=== PATIENT | female | born 1930 | race Caucasian/White ===

== ENCOUNTER 2016-10-11 17:11 | Inpatient (IN) ==
--- NOTE | 2016-10-11 18:12 | Diag Imaging Result Doc PS360 ---
EXAM: HEAD W/O CONTRAST HISTORY: possible tia TECHNIQUE: CT brain without. Dose reduction protocol. COMPARISON: None. FINDINGS: No parenchymal hemorrhage. No epidural or subdural hematoma. No subarachnoid hemorrhage. No mass identified on this noncontrasted exam. No hydrocephalus. There is atrophy. No sinus opacification. IMPRESSION: No hemorrhage. Mild atrophy. Electronically signed by Greg Currie 10/11/2016 6:10 PM
[2016-10-11] MEDS ORDERED: ASPIRIN PO ONE (18:32)
[2016-10-11 18:51] LABS: MANUAL DIFF NEEDED? NO
[2016-10-11 18:52] LABS: BASO% 1.3 % (0.0-0.8); EOS# 0.35 X1000 (0.0-0.7); EOS% 3.5 % (0.0-10.0); HEMATOCRIT 42.6 % (37.0-47.0); IMM GRAN# 0.03 X1000 (0.0-0.04); IMM GRAN% 0.3 % (0.0-0.5); LYMPH# 2.05 X1000 (1.2-3.4); LYMPH% 20.7 % (20.5-51.1); MCH 31.7 PG (27-31); MCHC 32.9 g/dL (33-37); MCV 96.6 FL (81-99); MONO# 1.06 X1000 (0.11-0.59); MONO% 10.7 % (1.7-9.3); MPV 10.2 FL (7.4-10.4); NEUT% 63.5 % (42.2-75.2); PLT 301 X1000 (130-400); RBC 4.41 XMIL (4.2-5.4)
[2016-10-11 19:03] LABS: INR 0.94; PROTIME 9.8 Seconds (9.2-11.7); PTT 24.5 Seconds (22.0-36.0)
[2016-10-11 19:04] LABS: CALCIUM 9.3 mg/dL (8.8-10.2); TOTAL BILIRUBIN 0.15 mg/dL (0.20-1.00); TOTAL PROTEIN 7.4 g/dL (6.3-8.3)
--- NOTE | 2016-10-11 19:16 | Diag Imaging Result Doc PS360 ---
EXAM: CHEST-PORTABLE HISTORY: stroke like symptoms TECHNIQUE: Portable AP COMPARISON: 05/11/2016 FINDINGS: The lungs are well expanded. The heart is not enlarged. The vessels are not distended. No pneumonia. No pleural effusions identified. IMPRESSION: Negative chest Electronically signed by Greg Currie 10/11/2016 7:13 PM
[2016-10-11 19:18] LABS: URINE CULTURE NEEDED? NO; URINE MICRO REVIEW NEEDED? NO; URINE SOURCE CLEAN CATCH
[2016-10-11 19:25] LABS: BILIRUBIN URINE NEGATIVE (NEGATIVE); BLOOD URINE NEGATIVE (NEGATIVE); COLOR STRAW; GLUCOSE URINE NEGATIVE (NEGATIVE); LEUKOCYTES URINE NEGATIVE (NEGATIVE); NITRITE URINE NEGATIVE (NEGATIVE); PH URINE 7.5; PROTEIN URINE NEGATIVE (NEGATIVE); SP GRAVITY URINE 1.001; TURBIDITY URINE CLEAR (CLEAR); UROBILINOGEN URINE NORMAL (NORMAL)
[2016-10-11 19:26] LABS: UR EPITHELIAL CELLS <10 /HPF (<10); URINE BACTERIA NEGATIVE /HPF; URINE RBC <10 /HPF (<10); URINE WBC <10 /HPF (<10)
--- NOTE | 2016-10-11 19:30 | PROVIDER DOCUMENTATION ---
This chart was entered by Regla Kessler Scribe, acting as scribe for Jamey Aguilar MD. HPI-Neurological Disorder - General Chief Complaint: Stroke-Like Symptoms Stated Complaint: POSS TIA Time Seen by Provider: 10/11/16 18:34 Source: patient Allergies/Adverse Reactions: Patient Allergies Allergy/AdvReac Type Severity Reaction Status Date / Time Penicillins Allergy Severe ANAPHYLAXIS Verified 10/11/16 17:43 niacin Allergy FLUSHING Verified 10/11/16 17:43 [From Niaspan Extended-Release] raloxifene HCl * Allergy Unknown Verified 10/11/16 17:43 [From Evista] ezetimibe [From Zetia] AdvReac myalgia Verified 10/11/16 17:43 fluvastatin sodium * AdvReac muscle pain Verified 10/11/16 17:43 [From Lescol] rosuvastatin calcium * AdvReac muscle pain Verified 10/11/16 17:43 [From Crestor] simvastatin [From Zocor] AdvReac NAUSEA Verified 10/11/16 17:43 Home Medications: Home Medication List Medication Instructions Recorded Confirmed Last Taken Type Lorazepam [Ativan] 0.5 mg PO BID 03/21/16 09/19/16 10/11/16 10:00 History Ondansetron HCl [Zofran] 4 mg PO PRN PRN 03/21/16 10/11/16 10/10/16 History Polyethylene Glycol 3350 [Miralax] 17 gm PO QPM 04/04/16 10/11/16 10/10/16 21: 00 History Cyanocobalamin (Vitamin B-12) 1,000 mcg IJ DIRECTED 10/11/16 10/11/16 History [Cyanocobalamin Injection] Hydrochlorothiazide 12.5 mg PO DAILY 10/11/16 10/11/16 10/10/16 21:00 History Omeprazole [Prilosec] 40 mg PO DAILY 10/11/16 10/11/16 10/11/16 10:00 History Prednisolone 1% Oph Susp [Pred 1 ml OP DIRECTED 10/11/16 10/11/16 10/11/16 History Forte 1% Oph Suspension] - History of Present Illness-Neuro Nature of Presenting Problem: 85 Y/O F presents to ED with Stroke like symptoms. Pt states that she went to visit daughter today and she was fine and began having slurred speech, was driving home and got lost began having confusion. Lasted about 30 mins and went away. pt states mild left side headache, pain in neck on left side. Pt states she has loss about 40 pounds due to gastrophresis. Pt was able to come off of HTN meds due to weight loss. Headache Location: reports: frontal (left side) Severity: reports: mild Onset/Duration: reports: this evening Timing: reports: gone now Character of Altered Mental Status: reports: confused. denies: seizure activity , decreased responsiveness Any recent trauma/injury?: reports: none Character of Deficits: reports: impaired speech New weakness or altered sensation location:: reports: none Cognitive Baseline: alert, oriented x3 Gait Baseline: walks without assistance Associated Symptoms: reports: headache, confusion, neck/back pain, slurred speech. denies: decreased ability to walk or stand, fatigue, insomnia, nausea, numbness in legs/feet, diaphoretic Similar Symptoms Previously?: No Recently seen or treated by another doctor?: No Review of Systems - Adult - REVIEW OF SYSTEMS - ADULT Constitutional: denies: chills, fever Eyes: reports: no symptoms reported Ears, Nose, Mouth & Throat: reports: no symptoms reported Cardiovascular: denies: chest pain Respiratory: denies: cough, shortness of breath Gastrointestinal: reports: no symptoms reported Genitourinary: reports: no symptoms reported Musculoskeletal: reports: no symptoms reported Integumentary: reports: no symptoms reported Neurological: reports: headache/migraines, slurred speech. denies: dizziness/ vertigo, loss of balance, numbness, tremors Psychiatric: reports: no symptoms reported Endocrine: reports: no symptoms reported Hematologic/Lymphatic: reports: no symptoms reported Allergic/Immunologic: reports: no symptoms reported All Other Systems: Reviewed and Negative Past History - Adult - PAST MEDICAL HISTORY-ADULT Review of Records: reports: Old Records Reviewed, Nursing Assessment Review, Medications Reviewed, Social history reviewed & non-contributory. Major Childhood Illnesses: reports: denies history Cardiovascular: reports: arrhythmia, HTN Respiratory: reports: denies history Gastrointestinal: reports: GERD Obstetrical/Gynecological: reports: denies history Genitourinary: reports: denies history Musculoskeletal: reports: denies history Neurological: reports: denies history Endocrine/Immune: reports: denies history Other Conditions: reports: denies history - PRIOR SURGERIES/PROCEDURES Surgical/Procedure History: reports: cholecystectomy, hysterectomy - IMMUNIZATION STATUS Childhood Immunizations: See Nurse Assessment Flu Vaccine: See Nurse Assessment - FAMILY HISTORY Family History: reviewed, not pertinent Physical Exam- Neurological - Physical Exam-Neuro General Appearance: alert, no apparent distress Eye Exam: bilateral eye: normal inspection, PERRL, EOMI HENMT: moist mucous membranes, normal ENT inspection, TMs normal Head Injury: no evidence of injury Neck: full range of motion, supple, normal inspection Respiratory: lungs clear, normal breath sounds Cardiovascular: regular rate, rhythm, no edema, no gallop, no JVD, no murmur Abdominal Exam: non tender, soft Lymphatic: no adenopathy Extremity: non-tender, normal gait, normal inspection, no pedal edema, 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 Exam: normal hearing, normal speech, PERRL Coordination/Gait: normal finger to nose, normal gait Motor/Sensory: no motor deficit, no sensory deficit, no pronator drift Neurologic: grossly normal Integumentary: normal turgor, warm/dry Psych/Mental Status: normal mood/affect, normal thought content, normal thought process, oriented x 3 - Glascow Coma Scale Best Eye Response: (4) open spontaneously Best Verbal Response: (5) oriented Best Motor Response: (6) obeys commands Total Glascow Score: 15 Progress - PLAN OF CARE/RESULTS Progress/Plan/Lab Results: Vital Signs - 8 hr 10/11/16 17:28 Temperature 97.8 F Pulse Rate 73 Respiratory Rate 18 Blood Pressure 180/72 O2 Sat by Pulse Oximetry 98 Laboratory Results - last 24 hr 10/11/16 10/11/16 10/11/16 17:37 17:37 17:37 WBC 9.90 RBC 4.41 Hgb 14.0 Hct 42.6 MCV 96.6 MCH 31.7 H MCHC 32.9 L RDW Std Deviation 12.5 Plt Count 301 MPV 10.2 Immature Gran % (Auto) 0.3 Neut % (Auto) 63.5 Lymph % (Auto) 20.7 Forrest % (Auto) 10.7 H Eos % (Auto) 3.5 Baso % (Auto) 1.3 H Immature Gran # (Auto) 0.03 Neut # (Auto) 6.28 Lymph # (Auto) 2.05 Forrest # (Auto) 1.06 H Eos # (Auto) 0.35 Baso # (Auto) 0.13 PT 9.8 INR 0.94 PTT (Actin FS) 24.5 Sodium 136 Potassium 4.0 Chloride 94 L Carbon Dioxide 30 Anion Gap 12 BUN 15 Creatinine 1.0 H Estimated GFR/1.73 m2 52 BUN/Creatinine Ratio 15 Glucose 85 Calculated Osmolality 272 Calcium 9.3 Total Bilirubin 0.15 L AST 14 ALT 10 Alkaline Phosphatase 69 Troponin T Total Protein 7.4 Albumin 4.0 Globulin 3.4 Albumin/Globulin Ratio 1.2 Urine Source Urine Color Urine Turbidity Urine pH Ur Specific [place] Urine Protein Ur Glucose (Stick) Ur Ketones (Stick) Urine Blood Urine Nitrite Urine Bilirubin Urobilinogen Dipstick Urine Leukocytes Urine WBC (Auto) Urine RBC (Auto) U Epithel Cells (Auto) Urine Bacteria (Auto) 10/11/16 10/11/16 17:37 18:11 WBC RBC Hgb Hct MCV MCH MCHC RDW Std Deviation Plt Count MPV Immature Gran % (Auto) Neut % (Auto) Lymph % (Auto) Forrest % (Auto) Eos % (Auto) Baso % (Auto) Immature Gran # (Auto) Neut # (Auto) Lymph # (Auto) Forrest # (Auto) Eos # (Auto) Baso # (Auto) PT INR PTT (Actin FS) Sodium Potassium Chloride Carbon Dioxide Anion Gap BUN Creatinine Estimated GFR/1.73 m2 BUN/Creatinine Ratio Glucose Calculated Osmolality Calcium Total Bilirubin AST ALT Alkaline Phosphatase Troponin T < 0.010 Total Protein Albumin Globulin Albumin/Globulin Ratio Urine Source CLEAN CATCH Urine Color STRAW Urine Turbidity CLEAR Urine pH 7.5 Ur Specific [place] 1.001 Urine Protein NEGATIVE Ur Glucose (Stick) NEGATIVE Ur Ketones (Stick) NEGATIVE Urine Blood NEGATIVE Urine Nitrite NEGATIVE Urine Bilirubin NEGATIVE Urobilinogen Dipstick NORMAL Urine Leukocytes NEGATIVE Urine WBC (Auto) <10 Urine RBC (Auto) <10 U Epithel Cells (Auto) <10 Urine Bacteria (Auto) NEGATIVE Orders Category Date Time Status Cardiac Monitoring DIRECTED Care 10/11/16 18:31 Active Finger Stick Blood Sugar (ED) DIRECTED Care 10/11/16 18:31 Active Saline Loc NOW Care 10/11/16 18:31 Active CHEST-PORTABLE [RAD] Stat Exams 10/11/16 18:31 Completed HEAD W/O CONTRAST [CT] Stat Exams 10/11/16 17:52 Completed CBC WITH ELECTRONIC DIFF [HEME] Stat Lab 10/11/16 17:37 Completed COMPREHENSIVE METABOLIC PANEL [CHEM] Stat Lab 10/11/16 17:37 Completed PROTIME WITH INR [COAG] Stat Lab 10/11/16 17:37 Completed PTT [COAG] Stat Lab 10/11/16 17:37 Completed TROPONIN T Stat Lab 10/11/16 17:37 Completed URINALYSIS W/POSS RFLX CULT-1 [URINALYSIS] Stat Lab 10/11/16 18:11 Completed URINE DRUG SCREEN Stat Lab 10/11/16 18:11 Received Aspirin Med 10/11/16 18:32 Discontinued 325 mg PO NOW ONE EKG [EKG] Stat Ther 10/11/16 17:30 Ordered Result Diagrams: 10/11/16 17:37 10/11/16 17:37 - CT/MRI 1 CT Study: Head Impression: Normal CT Results: no hemorrhage - CONSULTS/PCP/HOSPITALIST Notification #1 *Consult/PCP/Hospitalist*: Time Discussed: 19:29 Reason/Comments: Admit Consult Disposition: Admit (Admit Accepted) Departure - Departure Date of Disposition Decision: 10/11/16 Time of Disposition Decision: 19:29 DIAGNOSIS: TIA (transient ischemic attack) Qualifiers: Transient cerebral ischemia type: unspecified Qualified Code(s): G45.9 - Transient cerebral ischemic attack, unspecified Disposition: ADMITTED INPATIENT 09 Certified Medical Emergency: Emergent Condition: Good - Critical Care Note This patient required my direct & personal management of CC.: No Attestation - Physician/ VAUGHN Attestation Patient care was provided by Advanced Practice Provider:: No The physician spent face to face time with patient:: No Advanced Practice Provider documentation review:: Supervising physician onsite and consulted in the evaluation and care of this patient. The physician did not have a face to face encounter with the patient. This chart was documented by the indicated scribe, (Regla Kessler Scribe) and accurately reflects the services I performed and decisions made by me, Jamey Aguilar MD, as attested by the provider's signature.
[2016-10-11 19:31] LABS: UR AMPHETAMINES QUAL NONE DETECTED (NONE DETECT); UR BARBITUATES QUAL NONE DETECTED (NONE DETECT); UR BENZODIAZEPIN QUAL NONE DETECTED (NONE DETECT); UR CANNABINOIDS QUAL NONE DETECTED (NONE DETECT); UR COCAINE QUAL NONE DETECTED (NONE DETECT); UR METHADONE QUAL NONE DETECTED (NONE DETECT); UR OPIATES QUAL NONE DETECTED (NONE DETECT); UR OXYCODONE QUAL NONE DETECTED (NONE DETECT); UR PCP QUAL NONE DETECTED (NONE DETECT)
[2016-10-11] MEDS ORDERED: NS 1,000 ML IV SCH (21:22)
[2016-10-11] MEDS ORDERED: TYLENOL PO PRN (21:32)
[2016-10-11] MEDS ORDERED: ATIVAN PO SCH (21:45)
[2016-10-11] MEDS: PRED FORTE 1% OPH SUSPENSION LEFT EYE SCH (22:14)
[2016-10-11] MEDS: MIRALAX PO SCH (22:15)
[2016-10-12] MEDS: PRILOSEC PO SCH (06:38)
[2016-10-12 06:53] LABS: MANUAL DIFF NEEDED? NO
[2016-10-12 06:59] LABS: BASO% 1.5 % (0.0-0.8); EOS% 5.3 % (0.0-10.0); HEMATOCRIT 41.4 % (37.0-47.0); HEMOGLOBIN 13.6 g/dL (12.0-16.0); IMM GRAN# 0.03 X1000 (0.0-0.04); IMM GRAN% 0.4 % (0.0-0.5); LYMPH# 1.98 X1000 (1.2-3.4); LYMPH% 26.5 % (20.5-51.1); MCH 31.8 PG (27-31); MCHC 32.9 g/dL (33-37); MCV 96.7 FL (81-99); MONO% 9.4 % (1.7-9.3); NEUT% 56.9 % (42.2-75.2); PLT 273 X1000 (130-400); RBC 4.28 XMIL (4.2-5.4)
--- NOTE | 2016-10-12 07:21 | HISTORY AND PHYSICAL ---
PRIMARY CARE PROVIDER: Dr. Sharon Patel MD. DATE AND TIME OF HISTORY AND PHYSICAL: 10/11/2016 at 21:00. CHIEF COMPLAINT: Stroke like symptoms. HISTORY OF PRESENT ILLNESS: The patient is an 85-year-old, female who presented to the ER health system with complaints of stroke-like symptoms. She reports this evening starting at around approximately 3:30 in the afternoon that she began having slurring of her speech as well as use of inappropriate words. The patient reports during this time she was having trouble being able to think about what words to say and when she did she was also having trouble getting those words out. She states that this lasted for approximately 30 minutes and then her symptoms did start to resolve. She did report a dull frontal headache just after the resolvement of her symptoms though states this headache has resolved at this time as well. During this time, she denied any dizziness or lightheadedness. She denies any visual disturbances. She denies any difficulty swallowing or difficulty breathing. She denied any weakness, ataxia, numbness , tingling or any gait disturbance. She states initially when her symptoms began that she did present to Dr. Patel's office and they quickly examined her and instructed her to go to the ER for further evaluation. Upon arrival to the ER, the patient's symptoms have resolved. She was alert and oriented x3 according to ER documentation. She also complained of some left- sided neck pain. This has resolved at this time as well. The patient reports that recently she has had difficulties with nausea related to diagnosis of gastroparesis. She has also had weight loss of 40 pounds since this diagnosis as well. According to the patient, she previously took medications for high blood pressure though since losing weight, she has been able to come off this and currently at this time only takes a 12.5 mg of hydrochlorothiazide daily for hypertension control. The patient denies any chest pain or palpitations. She denies any previous episodes like this or previous history of strokes. She also denies any previous cardiac history except for her blood pressure. Upon evaluation in the ER, a CT head noncontrast was performed which showed no hemorrhage and just some mild atrophy. Chest x-ray showed no acute abnormality. At this time, we will admit the patient for further treatment and evaluation. REVIEW OF SYSTEMS: A 12 point review of systems was conducted with the patient. All were negative except for pertinent positives as mentioned in HPI. PAST MEDICAL HISTORY: 1. Diverticulosis with a recent colonoscopy which she had 9 polyps removed. 2. Gastroparesis. She also underwent a recent EGD. 3. Hypertension. 4. Anxiety. PREVIOUS SURGICAL HISTORY: 1. Previous EGD and colonoscopy performed by Dr. Jenkins who is the patient's digital content producer. 2. Cholecystectomy. 3. Breast biopsy. 4. Appendectomy. 5. Cataract surgery. 6. Left eye lens detachment surgery. SOCIAL HISTORY: The patient currently lives alone at this time. She normally does not require any assistance with activities of daily living. She does have family that lives close by that is able to help if needed. She does not require any ambulation assistance. She was a former smoker though quit approximately 50 years ago. She denies any alcohol or illicit drug use. FAMILY HISTORY: Positive for her mother passing away at a young age of 39 secondary to possible complications with pneumonia or diphtheria. She reports that she is unsure if her father had any medical problems though there is a history of colon cancer, liver cancer and breast cancer in her siblings. ALLERGIES: Patient reports allergies to penicillin, niacin, Evista, Zetia, Lescol, Crestor and Zocor. HOME MEDICATIONS: 1. Prednisolone 1% ophthalmic solution 1 drop in left eye at bedtime. 2. MiraLAX 17 g p.o. every evening. 3. Zofran 4 mg p.o. p.r.n. as needed for nausea. 4. Omeprazole 40 mg p.o. daily. 5. Hydrochlorothiazide 12.5 mg p.o. daily. 6. Vitamin B12 injection 1000 mcg as directed. 7. Ativan 0.5 mg p.o. b.i.d. DIAGNOSTIC DATA/LABORATORY RESULTS: 1. White blood cell count 9.9. Hemoglobin 14, hematocrit 42.6 and platelet count 301,000. PT 9.8, INR 0.94. PTT 24.5. Sodium 136, potassium 4, chloride 94, bicarb 30, BUN 15, creatinine 1. Estimated GFR 52. Glucose 85 and calcium 9.3. Liver function tests within normal limits. Troponin of less than 0.01. Urine drug screen was negative. Urinalysis was within normal limits. No glucose, ketones, blood nitrites, leukocytes, white blood cells, or bacteria noted. 2. EKG showed sinus rhythm with premature atrial complexes at a rate of 72 with a QTc of 427. 3. CT of the head showed no hemorrhage though there was mild atrophy noted. This was per radiology. Chest portable showed no acute abnormality. This was per radiology as well. PHYSICAL EXAMINATION: VITAL SIGNS: Temperature 97.4 degrees, heart rate 67, respirations 18, blood pressure 153/61. Oxygen saturation is 95% room air. GENERAL: Ms. Peterson is a pleasant 85-year-old, female who is resting comfortably on the ER stretcher. Upon my examination, she was awake, alert and able to answer all questions appropriately. HEENT: Head is atraumatic, normocephalic. The patient's left pupil is approximately 4-5 mm - patient has undergone a surgery for repair of a left eye lens attachment. The patient's right pupil is approximately 3 mm and also as mentioned the patient has had previous cataract surgery. Extraocular movements are intact. Oral mucosa is moist. Oropharynx is clear. NECK: Supple. Trachea midline. No JVD noted. No carotid bruits noted upon auscultation bilaterally. CARDIOVASCULAR: Patient has normal S1, S2. No murmurs, gallops, or rubs appreciated with a regular rate and rhythm. PULMONARY: Patient has symmetrical chest expansion bilaterally. Lung sounds are clear to auscultation in bilateral lung smith. ABDOMEN: Soft, nontender, and nondistended. Bowel sounds were present in all 4 quadrants and normoactive. EXTREMITIES: No cyanosis, clubbing, or edema noted. Pulse, motor and sensory are intact in all extremities. Pedal pulses are 3+ bilaterally. INTEGUMENTARY: The patient's skin is pink, warm, dry, and intact. No lesions or sores noted. NEUROLOGICAL: The patient is alert and oriented x4. Cranial nerves 2-12 are grossly intact. Visual smith were intact upon examination. She has no facial droop noted. Muscle strength is equal bilaterally. She has no arm drift noted as well. She denies any numbness or tingling in extremities. ASSESSMENT AND PLAN: 1. TIA versus stroke. At this time, we suspect likely TIA given the patient's quick resolvement of her symptoms of approximately 30 minutes. We will go ahead and do an MRI in the morning as well as MRA studies. We have also ordered for an echocardiogram to be performed. We will go ahead and place her on low-dose aspirin. We have placed studies for a lipid profile though it does appear the patient has several allergies and side effects previously from cholesterol medications. We will do q.4 hours vital signs and q.4 hours neuro checks. The patient was alert and oriented, able to sit upright and cough, and is managing secretions. At this time, we did allow her to go ahead and be placed on a heart healthy diet until midnight for which she will be NPO for a lipid profile in the morning. We have placed a consult with Neurology, and will await their evaluations and further recommendations. 2. Hypertension. At this time, the patient's blood pressure is within normal limits. We will hold her hydrochlorothiazide at this time. We will allow some permissive hypertension as well and will closely monitor this and treat if necessary. 3. Nausea with a history of gastroparesis. We will continue the patient's Zofran as well as her omeprazole. 4. Anxiety. We will continue the patient's Ativan. We will closely monitor her neurological status with administration of this medication. 5. Deep vein thrombosis prophylaxis will be provided with SCD's. 6. She will be placed on the medical floor with telemetry. We will go ahead and implement aspiration precautions as well. We will do strict intake and output. As previously mentioned, we are doing q.4 hours vitals and neuro checks. Further orders and recommendations pending hospital course, diagnostic studies, and physical evaluation. Dictated by DENISE Orona for Bernardo Kate MD cc: Bernardo Kate MD MTDD
[2016-10-12 07:25] LABS: ALBUMIN 3.4 g/dL (3.5-5.0); CALCIUM 9.1 mg/dL (8.8-10.2); POTASSIUM 4.5 mmol/L (3.5-5.1); TOTAL BILIRUBIN 0.29 mg/dL (0.20-1.00); TOTAL PROTEIN 6.5 g/dL (6.3-8.3)
--- NOTE | 2016-10-12 07:38 | EKG Report ---
Test Performed on : 10/11/2016 5:17:34 PM Test Reason : possible tia Blood Pressure : / mmHG Vent. Rate : 072 BPM Atrial Rate : 072 BPM P-R Int : 146 ms QRS Dur : 078 ms QT Int : 390 ms P-R-T Axes : 048 014 067 degrees QTc Int : 427 ms Sinus rhythm. with premature atrial complexes. Otherwise normal ECG When compared with ECG of 03-MAR-2016 13:43, premature atrial complexes. are now present Unconfirmed Result
--- NOTE | 2016-10-12 09:54 | Diag Imaging Result Doc PS360 ---
EXAM: MRA BRAIN W/O CONTRAST HISTORY: TIA/Stroke TECHNIQUE: COMPARISON: None. FINDINGS: MR angiography of the [place] obtained in multiple projections. There is normal flow within each distal internal carotid artery. Normal flow within each anterior cerebral artery and each middle cerebral artery. There is normal flow in the basilar artery and posterior cerebral arteries. There are bilateral posterior communicating arteries. This is a normal variant. No aneurysm identified. No stenosis. IMPRESSION: Normal MR angiography of the [place]. Electronically signed by Greg Currie 10/12/2016 9:52 AM
--- NOTE | 2016-10-12 10:13 | Diag Imaging Result Doc PS360 ---
EXAM: MRI BRAIN W W/O CONTRAST, MRA NECK W/CONT INDICATION: TIA/Stroke COMPARISON: None. MRI BRAIN: FINDINGS: There is no evidence of acute infarct. The deep white matter signal is unremarkable. There is no discrete intracranial mass, mass effect, or intracranial hemorrhage. The surrounding soft tissues and bony structures are essentially unremarkable. IMPRESSION: No evidence of acute intracranial pathology and essentially unremarkable, otherwise. MRA NECK: FINDINGS: There is no evidence of flow-limiting stenosis, vascular malformation, dissection, or aneurysm involving the right or left carotid system in both the right and left vertebral arteries. Limited views of the aortic arch are grossly unremarkable. IMPRESSION: Grossly normal MRA neck. Electronically signed by Sanket Martin 10/12/2016 10:11 AM
[2016-10-12] MEDS: ATIVAN PO PRN ×2 (12:27→22:36)
[2016-10-12] MEDS: ZOFRAN IV PRN (14:26)
--- NOTE | 2016-10-12 15:09 | CONSULTATION ---
DATE OF CONSULTATION: 10/12/2016 NEUROLOGY CONSULT NOTE: Ms. Peterson is 85 years old, and history suggests a dominant left hemisphere ischemic incident yesterday. She remembers feeling well, and then developing headache, feeling dizzy, noticing some unsteadiness to her gait and sudden onset of inability to say her words correctly. She thinks there might have been a short period of time that she had trouble understanding what was said to her. At one point, she thinks her speech might have been slurred but much more prominent was the word finding difficulty. There was never unconsciousness or unresponsiveness. She did not notice definite focal weakness but did have some unsteadiness with gait and some dizziness. All of this resolved over a period of several hours. Initial noncontrast CT of the head was unremarkable. Brain MRI with and without contrast today is also reported unremarkable. Brain and cervical MRA are unremarkable. She has history of hypertension, anxiety, recently diagnosed gastroparesis. She has had some procedures on her eyes and was advised to stopped taking aspirin because of possible retinal bleeding. She reports her last visit to the eye doctor resulted in her being told that she might resume aspirin if needed. On presentation, blood pressure was recorded 180/72. Subsequent blood pressures have been 130s- 160s systolic. She has been afebrile. Heart rate has ranged from 60s to 70s. Lab work showed total cholesterol 215. Chemistry was otherwise unremarkable. She takes lorazepam 0.5 mg b.i.d. and presented with urine drug screen all negative including negative for benzodiazepine. I think that is consistent with the very high threshold for positive finding in the urine benzodiazepine screen done in this lab. She does not give any report consistent with benzodiazepine withdrawal. She has never had previous diagnosed stroke, seizure, serious head injury, other neurologic event. She has not had previous headache associated with language disturbance or other deficit. On exam, she is awake, alert, attentive, appropriate, oriented. She is hard of hearing but communicates well when she hears me. Speech is not dysarthric. She did well on bedside language testing. Remote memory is good. Head and neck are unremarkable. Visual smith are full tested grossly by confrontational finger counting. Extraocular movements are full. Facial motility is diminished bilaterally, but symmetric. Gag is intact. Tongue is midline. Hearing is poor. Shoulder shrug is equal. I can overcome the left deltoid due to splinting at the shoulder. Otherwise, strength is normal and symmetric in the limbs. Tone is symmetric in the limbs. She did well on cgueae-ny-swbv testing bilaterally. I did not test her gait. Reflexes 1+ at the wrists and absent at the ankles bilaterally. Plantar response is silent bilaterally. She reports good pinprick appreciation over the limbs. IMPRESSION: Headache, probable dysphasia, possible transient gait difficulty. All of this resolved. Negative imaging is consistent with a resolved ischemic deficit. The several hour time frame is much longer than usually seen with transient ischemic attack and "RIND " might be a better label. At any rate, negative imaging is reassuring. I think she should resume aspirin if tolerated, continue aggressive management of her blood pressure, blood sugar, cholesterol. I encouraged her to be careful with lorazepam, but I do not think that played a role with her recent episode. Of course, migraine is always a consideration with headache and neurologic deficit, but in light of her age and risk factors, I think this is more likely ischemic event. I do not have any urgent suggestions now. Thanks for asking me to see Ms. Peterson. cc: MD TOMAS Scott III
--- NOTE | 2016-10-12 16:56 | PROGRESS NOTE ---
DATE: 10/12/2016 Patient was admitted on 10/12/2016 early this morning. 85-year-old, and she stated that she was going to her daughter's house and also and had trouble pronouncing words and this lasted for 10 or 15 minutes and seemed to get a little better. On exam Dr. Diaz felt she had some left shoulder weakness as well. Speech has returned. She feels close to normal. She has also had trouble with gastroparesis. She has had a recent colonoscopy which just found a couple polyps and a little bit of diverticulosis but she does have gastroparesis and this is giving her quite a bit of trouble. She has lost weight. She is on a high fiber diet. PAST MEDICAL HISTORY: 1. Diverticulosis with recent colonoscopy, 9 polyps removed. 2. Gastroparesis, underwent recent EGD. 3. Hypertension. 4. Anxiety. PAST SURGICAL HISTORY: 1. Previous EGD and colonoscopy as above. 2. Cholecystectomy. 3. Breast biopsy. 4. Appendectomy. 5. Cataract surgery. 6. Left eye lens detachment. She was on aspirin and held the aspirin at that time. 7. She had a brain MRI, MRA, normal angiographically in the [place]. Her MRI of the brain revealed grossly normal. No evidence of acute intracranial pathology, essentially unremarkable by report and her neck MRA, no evidence of acute intracranial pathology. Essentially normal, grossly normal MRA. EXAM: Today temp 98.3 degrees, pulse 70, respirations 19, blood pressure 123/54.Lungs: Clear in all lung smith. Cardiovascular: Regular rhythm and rate without murmur or S3. Abdomen: Soft. Skin: Warm and dry. Urine output 800 mL. Lab looks good. ASSESSMENT AND PLAN: 1. Looks like a right hemisphere CVA, headache, probable dysphagia, possible transient gait difficulty. All has resolved. Imaging is negative and this is a longer time frame to suspect transient ischemic attack and a RIND might be a better label. Appreciate Dr. Diaz's help. We will watch her blood pressure. Will resume her aspirin and her swallow seems to be good. Continue physical therapy. 2. Gastroparesis. I would like to see if maybe she would benefit from some Reglan and we will try some. 3. She had recent lens implant left eye. cc: Tyshawn Nam MD
[2016-10-12] MEDS ORDERED: MILK OF MAGNESIA PO PRN (19:40)
[2016-10-12] MEDS ORDERED: TUMS PO PRN (19:46)
[2016-10-12] MEDS ORDERED: ASPIRIN PO SCH (21:00)
[2016-10-12] MEDS ORDERED: MIRALAX PO SCH (21:00)
[2016-10-12] MEDS: REGLAN PO SCH (22:36)
[2016-10-12] MEDS: MIRALAX PO SCH (22:36)
[2016-10-12] MEDS: PRED FORTE 1% OPH SUSPENSION LEFT EYE SCH (23:50)
[2016-10-13] MEDS: PRILOSEC PO SCH (07:45)
[2016-10-13] MEDS: REGLAN PO SCH ×2 (07:45→11:06)
[2016-10-13] MEDS: ZOFRAN IV PRN (11:04)
[2016-10-13] MEDS: ATIVAN PO PRN (11:04)
[2016-10-13 12:20] VITALS: BP 152/63
--- NOTE | 2016-10-13 13:46 | PROGRESS NOTE ---
DATE: 10/13/2016 Ms. Peterson reports she has felt a little bit weaker today. He has not noticed focal weakness. She was able to walk with help from physical therapy. She has not had any more problems with speech or word finding. She believes that she is feeling weaker because her stomach motility continues to be a problem and she is not able to eat well. She reports taking metoclopramide with benefit over a period of a few months and that was stopped because she felt nervous approximately 6 months ago. She has tried some other medicines since then but nothing has provided the benefit she got with metoclopramide. She does not recall the metoclopramide dose. She did not have any other adverse effects. She specifically denies parkinsonian features. On exam, she is alert with no parkinsonian features. The left shoulder findings are unchanged and I do not find a definite focal neurologic deficit. I believe metoclopramide has been ordered here and she has decided not to resume that medicine yet because she has not discussed it thoroughly with her doctors. She was never advised not to take metoclopramide but simply stopped it as a precaution. In that setting, based on her history and her report that she is feeling weaker now, I think we can resume metoclopramide as ordered. I discussed relatively low risk for extrapyramidal syndrome with her and she understands and accepts that. There is no evidence of stroke or new neurologic problem. No other suggestion from neurologic standpoint today. cc: Evelyn Diaz III, MD MTDD
--- NOTE | 2016-10-13 14:24 | ECHO REPORT ---
ORDER DATE: 10/12/2016 MEASUREMENTS: 1. Left ventricular end-diastolic diameter 5.0. 2. Systolic diameter 3.2. Posterior wall thickness 1.0. 3. Septal thickness 1.0. 4. Left atrium 3.8. 5. Aortic root 3.6. SUMMARY: 1. Fair quality study. 2. Aortic valve is trileaflet and opens normally on 2-dimensional images. There is trace aortic regurgitation. Mild mitral annular calcification is demonstrated. There is very mild mitral regurgitation. Tricuspid and pulmonic valves are without structural abnormality with mild tricuspid regurgitation and trace pulmonic insufficiency. The estimated systolic PA pressure by Doppler is 35 mmHg. The aortic root is normal in size. 3. Normal left ventricular dimensions demonstrated. 4. Estimated left ventricular ejection fraction is greater than 65%. No regional wall motion abnormalities are evident. Doppler suggests grade 1 left ventricular diastolic dysfunction. Left atrium is mildly enlarged. Right atrium and right ventricle are normal in size with normal right ventricular systolic function. 5. No pericardial effusion. 6. Inferior vena cava not well demonstrated. 7. Sinus rhythm during study. cc: Marek Gottlieb MD
--- NOTE | 2016-10-13 15:23 | DISCHARGE SUMMARY ---
ADMISSION DATE: 10/11/2016 DISCHARGE DATE: 10/13/2016 PRIMARY CARE PHYSICIAN: Sharon Patel MD. HISTORY AND HOSPITAL COURSE: She presented with stroke-like syndrome. An 85-year-old female who presented to the ER on 10/11/2016 with complaint of stroke-like symptoms. She reports it started around 3:30 in the afternoon when she was over at her daughter's house and apparently inappropriate words and not able to form words. This improved after about 10-15 minutes, but her daughter stated it lasted for about 30 minutes and then started to resolve. She did have a dull frontal headache and a feeling of dizziness and lightheadedness. It improved on her way here. She apparently denied any visual disturbance. No difficulty swallowing or breathing. She presented to Dr. Patel's office and they quickly examined her and instructed her to go to the emergency room for further evaluation. She was admitted here. Speech is improved. She seemed to have a little weakness in the left shoulder. Suspect reversible ischemic neurologic deficit. Dr. Diaz did evaluate. She was put back on her aspirin. She recently had been diagnosed with gastroparesis and they had stopped the Reglan because of nervousness. We are going to try it again. It does seem to help her, so she wants to go back on the Reglan. Varina she could be discharged on 10/13/2016. DISCHARGE MEDICATIONS: We will discharge her on the current medications: Calcium carbonate or Tums 500 mg p.o. t.i.d. p.r.n., aspirin 81 mg a day, milk of magnesia p.r.n., and we will try the Reglan at 5 mg q.a.c. and see if this will help. MiraLAX 17 g at bedtime. FOLLOWUP: Follow up with Dr. Patel. cc: Tyshawn Nam MD
--- NOTE | 2016-12-20 21:35 | ED EKG INTERP ---
This chart was entered by Rand Bruce Scribe, acting as scribe for Ritesh Myles MD. EKG Interpretation - EKG Time of EKG reading by physician:: 17:17 EKG Read and Signed by:: Ritesh Myles EKG Interpretation (*Must complete 3 of following elements*): Abnormal Rate: 72 Rhythm: sinus rhythm with premature atrial complexes Comments: otherwise normal ECG Attestation - Physician/ VAUGHN Attestation Patient care was provided by Advanced Practice Provider:: No The physician spent face to face time with patient:: No Advanced Practice Provider documentation review:: Supervising physician onsite and consulted in the evaluation and care of this patient. The physician did not have a face to face encounter with the patient. This chart was documented by the indicated scribe, (Rand Bruce Scribe) and accurately reflects the services I performed and decisions made by me, Ritesh Myles MD, as attested by the provider's signature.
== END 2016-10-13 16:00 | disposition home or self-care (01) ==
LOC: ED 17:11 → SUATTDRO 20:33 → 3N 20:33
PROVIDERS: ATTEND Emergency Medicine

== ENCOUNTER 2016-11-26 12:54 | Inpatient (IN) ==
[2016-11-26 14:04] LABS: MANUAL DIFF NEEDED? NO
[2016-11-26 14:15] LABS: BASO% 0.9 % (0.0-0.8); EOS# 0.29 X1000 (0.0-0.7); EOS% 2.9 % (0.0-10.0); HEMATOCRIT 40.2 % (37.0-47.0); HEMOGLOBIN 13.9 g/dL (12.0-16.0); IMM GRAN# 0.04 X1000 (0.0-0.04); IMM GRAN% 0.4 % (0.0-0.5); LYMPH# 1.76 X1000 (1.2-3.4); LYMPH% 17.4 % (20.5-51.1); MCHC 34.6 g/dL (33-37); MCV 92.6 FL (81-99); MONO# 0.79 X1000 (0.11-0.59); MONO% 7.8 % (1.7-9.3); MPV 9.6 FL (7.4-10.4); NEUT% 70.6 % (42.2-75.2); PLT 338 X1000 (130-400); RBC 4.34 XMIL (4.2-5.4)
[2016-11-26] MEDS ORDERED: PHENERGAN IM ONE (14:46)
[2016-11-26 15:14] LABS: ALBUMIN 3.9 g/dL (3.5-5.0); CALCIUM 8.6 mg/dL (8.8-10.2); POTASSIUM 3.9 mmol/L (3.5-5.1); TOTAL BILIRUBIN 0.26 mg/dL (0.20-1.00); TOTAL PROTEIN 7.5 g/dL (6.3-8.3)
--- NOTE | 2016-11-26 17:34 | PROVIDER DOCUMENTATION ---
This chart was entered by Rand Bruce Scribe, acting as scribe for Jasen Burr DO. HPI-Abdominal Pain/GI Problem - General Chief Complaint: Nausea Stated Complaint: NAUSEA Time Seen by Provider: 11/26/16 13:05 Source: patient Allergies/Adverse Reactions: Patient Allergies Allergy/AdvReac Type Severity Reaction Status Date / Time Penicillins Allergy Severe ANAPHYLAXIS Verified 11/26/16 13:32 niacin Allergy FLUSHING Verified 11/26/16 13:32 [From Niaspan Extended-Release] raloxifene HCl * Allergy Unknown Verified 11/26/16 13:32 [From Evista] ezetimibe [From Zetia] AdvReac myalgia Verified 11/26/16 13:32 fluvastatin sodium * AdvReac muscle pain Verified 11/26/16 13:32 [From Lescol] metoclopramide [From Reglan] AdvReac Unknown Verified 11/26/16 13:32 rosuvastatin calcium * AdvReac muscle pain Verified 11/26/16 13:32 [From Crestor] simvastatin [From Zocor] AdvReac NAUSEA Verified 11/26/16 13:32 Home Medications: Home Medication List Medication Instructions Recorded Confirmed Last Taken Type Lorazepam [Ativan] 0.5 mg PO BID 03/21/16 11/26/16 11/26/16 09:00 History Ondansetron HCl [Zofran] 4 mg PO PRN PRN 03/21/16 11/26/16 11/26/16 11:00 History Polyethylene Glycol 3350 [Miralax] 17 gm PO QPM 04/04/16 11/26/16 11/25/16 21: 00 History Hydrochlorothiazide 12.5 mg PO DAILY 10/11/16 11/26/16 11/25/16 18:00 History Omeprazole [Prilosec] 40 mg PO BID 10/11/16 11/26/16 11/26/16 08:00 History Prednisolone 1% Oph Susp [Pred 1 ml OP DIRECTED 10/11/16 11/26/16 11/26/16 07 :00 History Forte 1% Oph Suspension] Aspirin 81 mg PO HS chewtab 10/13/16 11/26/16 11/26/16 07:00 Rx Calcium Carbonate Chew [Tums] 500 mg PO TID PRN PRN #0 tab.chew 10/13/16 Unknown Rx Erythromycin Base [Erythromycin] 250 mg PO TID 11/26/16 11/26/16 11/25/16 History - History of Present Illness-ABD Nature of Presenting Problems: Pt is a 85 y/o F presents to the ED with abdominal pain and nausea. Pt states symptoms have been present for 2 days. Pt states hx of gastroparesis and diverticulitis. Pt denies vomiting and diarrhea. Pt denies fever. Abdominal Pain Onset Location: reports: generalized abdomen Pain Radiation: reports: no radiation Quality of Pain: reports: aching Severity in ED: reports: mild Timing: reports: still present Activities at Onset: reports: light activity Modifying Factors: improves with: nothing Associated Symptoms: reports: nausea Last BM: unsure Dark Stools Present?: reports: none noticed Rectal Bleeding: reports: none Rectal Pain: reports: none Emesis Description: reports: none Bruising or Bleeding Gums?: No Similar Symptoms Previously?: Yes (present for 2 days ) Recently seen or treated by another doctor?: Yes (seen last month ) Review of Systems - Adult - REVIEW OF SYSTEMS - ADULT Constitutional: reports: no symptoms reported Eyes: reports: no symptoms reported Ears, Nose, Mouth & Throat: reports: no symptoms reported Cardiovascular: reports: no symptoms reported Respiratory: reports: no symptoms reported Gastrointestinal: reports: abdominal pain (generalized), nausea. denies: diarrhea, vomiting Genitourinary: reports: no symptoms reported Musculoskeletal: reports: no symptoms reported Integumentary: reports: no symptoms reported Neurological: reports: no symptoms reported Psychiatric: reports: no symptoms reported Endocrine: reports: no symptoms reported Hematologic/Lymphatic: reports: no symptoms reported Allergic/Immunologic: reports: no symptoms reported All Other Systems: Reviewed and Negative Past History - Adult - PAST MEDICAL HISTORY-ADULT Review of Records: reports: Nursing Assessment Review, Medications Reviewed, Social history reviewed & non-contributory. Major Childhood Illnesses: reports: denies history Cardiovascular: reports: arrhythmia, HTN Respiratory: reports: asthma Gastrointestinal: reports: GERD, other (gastroparesis and diverticulitis) Obstetrical/Gynecological: reports: denies history Genitourinary: reports: kidney disease Musculoskeletal: reports: denies history Neurological: reports: denies history Psychiatric: reports: anxiety Endocrine/Immune: reports: denies history Other Conditions: reports: denies history - PRIOR SURGERIES/PROCEDURES Surgical/Procedure History: reports: appendectomy, cholecystectomy, hysterectomy - IMMUNIZATION STATUS Childhood Immunizations: See Nurse Assessment Flu Vaccine: See Nurse Assessment - FAMILY HISTORY Family History: reviewed, not pertinent - SOCIAL HISTORY Smoking: quit greater than 1 year, cigarettes Substance Use: denies Living Situation: family Physical Exam-General - PHYSICAL EXAM-ADULT Initial Vital Signs Reviewed: Yes - CONSTITUTIONAL General Appearance: appears well, alert, no apparent distress. negative: lethargic, slow to respond - EYES Eyes: PERRL/EOMI, pink conjunctivae. negative: pale conjunctivae, sunken eyes - HEAD, EARS, NOSE, MOUTH & THROAT HENMT: normal ENT inspection. negative: angioedema, hearing deficit - NECK Neck: normal inspection. negative: lymphadenopathy, tender lateral - RESPIRATORY Respiratory: chest non-tender, lungs clear, normal breath sounds. negative: crackles, rhonchi, stridor - CARDIOVASCULAR Cardiovascular: normal peripheral pulses, regular rate, rhythm. negative: tachycardia, systolic murmur - GASTROINTESTINAL (ABDOMEN) Abdominal Exam: normal bowel sounds, non tender, soft. negative: distended, rebound, Alcazar's sign - LYMPHATIC Lymphatic: no adenopathy. negative: enlargement, streaking - MUSCULOSKELETAL Back Exam: normal inspection. negative: ecchymosis, swelling Extremity: normal inspection. negative: deformity, erythema, tenderness - SKIN Integumentary: normal color, normal turgor, warm/dry. negative: diaphoresis, ecchymosis, erythema, laceration(s), rash - NEUROLOGIC Neurologic: grossly normal. negative: aphasia, facial droop - PSYCHIATRIC Psych/Mental Status: normal mood/affect, oriented x 3. negative: paranoid, tearful Progress - PLAN OF CARE/RESULTS Progress/Plan/Lab Results: Vital Signs - 8 hr 11/26/16 12:59 Temperature 97.6 F Pulse Rate 70 Respiratory Rate 20 Blood Pressure 176/59 O2 Sat by Pulse Oximetry 100 Orders Category Date Time Status CBC WITH ELECTRONIC DIFF [HEME] Stat Lab 11/26/16 13:52 Results CMP [COMPREHENSIVE METABOLIC PANEL] [CHEM] Stat Lab 11/26/16 13:52 Received TROPONIN T Stat Lab 11/26/16 13:52 Received EKG [EKG] Stat Ther 11/26/16 13:51 Ordered This patient came here with h/o Nausea and mild abdominal discomfort. Denies any vomitings, fever. Known case of gastroparesis on Erythromycin scheduled for MRCP tomorrow. Given Phenergan injection. Has Na of 125 meq. Result Diagrams: 11/26/16 13:52 11/26/16 13:52 - EKG 1 Time of EKG reading by physician:: 17:14 EKG Read and Signed by:: Uche Diez EKG Interpretation (*Must complete 3 of following elements*): Abnormal Rate: 69 Rhythm: sinus rhythm with premature atrial complexes Comments: otherwise normal ECG - CONSULTS/PCP/HOSPITALIST Notification #1 *Consult/PCP/Hospitalist*: Dr. Manning Time Discussed: 17:15 Reason/Comments: Dr. Burr consulted with Dr. Manning about Pt Consult Disposition: Admit Departure - Departure Date of Disposition Decision: 11/26/16 Time of Disposition Decision: 17:31 DIAGNOSIS: Hyponatremia Disposition: ADMITTED INPATIENT 09 Certified Medical Emergency: Emergent Condition: Good Referrals and Follow-Ups: Sharon Patel MD [Primary Care Provider] - - Critical Care Note This patient required my direct & personal management of CC.: No Attestation - Physician/ VAUGHN Attestation The physician spent face to face time with patient:: Yes Advanced Practice Provider documentation review:: Supervising physician onsite and consulted in the evaluation and care of this patient. The physician did have a face to face encounter with the patient. This chart was documented by the indicated scribe, (Rand Bruce Scribe) and accurately reflects the services I performed and decisions made by , Jasen Burr DO, as attested by the provider's signature.
[2016-11-26 18:34] LABS: URINE CULTURE NEEDED? NO; URINE MICRO REVIEW NEEDED? NO; URINE SOURCE CLEAN CATCH
[2016-11-26 18:38] LABS: BILIRUBIN URINE NEGATIVE (NEGATIVE); BLOOD URINE NEGATIVE (NEGATIVE); COLOR STRAW; GLUCOSE URINE NEGATIVE (NEGATIVE); LEUKOCYTES URINE NEGATIVE (NEGATIVE); NITRITE URINE NEGATIVE (NEGATIVE); PH URINE 6.5; PROTEIN URINE NEGATIVE (NEGATIVE); SP GRAVITY URINE 1.006; TURBIDITY URINE CLEAR (CLEAR); UROBILINOGEN URINE NORMAL (NORMAL)
[2016-11-26 18:39] LABS: UR EPITHELIAL CELLS <10 /HPF (<10); URINE BACTERIA NEGATIVE /HPF; URINE RBC <10 /HPF (<10); URINE WBC <10 /HPF (<10)
--- NOTE | 2016-11-26 18:58 | HISTORY AND PHYSICAL ---
CHIEF COMPLAINT: Nausea and vomiting, intractable. HISTORY OF PRESENT ILLNESS: This is an 85-year-old female, who was diagnosed with gastroparesis previously, who came in for evaluation today. She has had protracted nausea and vomiting. Apparently, she has been diagnosed with gastroparesis and she has been followed by Dr. Jenkins. Plan was for an outpatient MRCP tomorrow. Previously she was admitted about last month for a TIA. She has had numerous GI issues previously. Her gastric emptying study in May showed delayed gastric emptying and she has been treated as such although not completely controlled. She does not eat very well. She has been intolerant of Reglan that had caused some nervous issues so she has been on erythromycin and Zofran, but she has not had control over her symptoms and has not been able to keep anything down with the last 24 hours. She also describes reflux symptoms, but no maco nausea or vomiting. PAST MEDICAL HISTORY: 1. Gastroparesis. 2. Hypertension. 3. Recent transient ischemic attack. 4. Reported hypertension. 5. Diverticulosis. 6. Anxiety disorder. PAST SURGICAL HISTORY: 1. She has had a breast biopsy. 2. Cholecystectomy. 3. Appendectomy. 4. Cataract surgery. SOCIAL HISTORY: No tobacco or ethanol. Her daughter is visiting from [place] and has been with her. FAMILY HISTORY: Really noncontributory. ALLERGIES: Penicillin, Niacin, Evista, Zetia, Lescol, Crestor and Zocor. HOME MEDICATIONS: She is on aspirin 81 daily, calcium 500 t.i.d., erythromycin 250 t.i.d., hydrochlorothiazide 12.5 daily, Ativan 0.5 daily, Prilosec 40 b.i.d., Zofran, MiraLAX and prednisolone. REVIEW OF SYSTEMS: She has had a 40 pound weight loss over the last year, but stable over the last month. Reviewed 10 systems otherwise negative. PHYSICAL EXAMINATION: VITAL SIGNS: Blood pressure 176/59, heart rate of 70, respiratory rate 20, temperature 97.6 degrees. 100% on room air. GENERAL: A well-developed female, in no acute distress. HEAD: Normocephalic, atraumatic. EYES: Pupils equal, round, reactive to light. Extraocular movements were intact. EAR/NOSE/THROAT: Exam revealed moist mucous membranes. NECK: Supple. CARDIOVASCULAR: Regular rate and rhythm. No murmurs, gallops, or rubs. PULMONARY: Bilateral breath sounds, clear to auscultation. GI: Soft, nontender, nondistended. Bowel sounds are positive. EXTREMITIES: No clubbing or cyanosis. LYMPHATICS: No peripheral edema. NEUROLOGICAL: Nonfocal. LABORATORY DATA: CBC was within normal limits. Chemistry showed a sodium of 125, which had previously been normal, but earlier this month with 130. No urine collected. Lactoferrin was analyzed. I do not think we did any plain films. PROBLEM LIST: This is an 85-year-old female with gastroparesis, presenting with hyponatremia. 1. Hyponatremia. Likely reset osmostat related to hydrochlorothiazide effect versus just plain dehydration and total body sodium loss from intractable nausea and vomiting. We will check urine electrolytes. Correct with normal saline and follow. I think we should hold hydrochlorothiazide for right now until her gastrointestinal issues get resolved. 2. Intractable nausea and vomiting. We will continue the erythromycin. I will give it IV. Protonix IV. IV fluids, antiemetics and follow. Plan for MRCP as described by Dr. Jenkins and we will have Dr. Jenkins evaluate the patient tomorrow. 3. Hypertension. We will continue to monitor. Add p.r.n. medications as needed. 4. History of transient ischemia attack. Will continue aspirin and follow. DISPOSITION: Pending her clinical course. cc: MD Sharon Bowden MD Dr. Keith
[2016-11-26] MEDS ORDERED: TUMS PO PRN (19:14)
[2016-11-26] MEDS ORDERED: SODIUM CHLORIDE 0.9% INJ PRN (19:14)
[2016-11-26] MEDS ORDERED: PHENERGAN IV PRN (19:14)
[2016-11-26] MEDS ORDERED: ZOFRAN IV PRN (19:14)
[2016-11-26] MEDS ORDERED: TYLENOL PO PRN (19:14)
[2016-11-26] MEDS ORDERED: NS 1,000 ML IV ONE (19:14)
--- NOTE | 2016-11-26 19:46 | Diag Imaging Result Doc PS360 ---
EXAM: FLAT/UPRIGHT ABD/1 VIEW CHEST HISTORY: n/v TECHNIQUE: Flat and upright abdomen with PA chest COMMENT: There is gas and stool in the colon. The small bowel and stomach are not distended. There is no evidence organomegaly or mass. There are atherosclerotic calcifications in the iliac arteries. There are spondylotic change in the lumbar spine and lower thoracic spine. The appearance of the chest has not changed significantly since 10/11/2016. IMPRESSION: Nonspecific abdomen. Electronically signed by Huan Aranda 11/26/2016 7:44 PM
[2016-11-26] MEDS: ERYTHROMYCIN 500 MG in NS 250 ML IV SCH (21:12)
[2016-11-26] MEDS: ASPIRIN PO SCH (21:12)
[2016-11-26] MEDS: PROTONIX IV SCH (21:12)
[2016-11-26] MEDS: ATIVAN PO SCH (21:12)
[2016-11-26] MEDS: MIRALAX PO SCH (21:12)
[2016-11-27 01:56] LABS: UR CREAT RANDOM 22.3 mg/dL (11-20)
[2016-11-27 06:53] LABS: HEMATOCRIT 41.9 % (37.0-47.0); MCH 31.9 PG (27-31); MCHC 33.4 g/dL (33-37); MCV 95.4 FL (81-99); MPV 9.5 FL (7.4-10.4); RBC 4.39 XMIL (4.2-5.4)
[2016-11-27 07:22] LABS: CALCIUM 9.1 mg/dL (8.8-10.2); POTASSIUM 3.8 mmol/L (3.5-5.1)
[2016-11-27] MEDS: ERYTHROMYCIN 500 MG in NS 250 ML IV SCH ×4 (08:09→21:14)
[2016-11-27] MEDS: SODIUM CHLORIDE 0.9% INJ SCH (08:10)
[2016-11-27] MEDS: PROTONIX IV SCH ×2 (08:10→21:09)
--- NOTE | 2016-11-27 09:21 | Diag Imaging Result Doc PS360 ---
EXAM: MRI/MRCP ABDOMEN W/WO CONTRAST INDICATION: nausea/emesis TECHNIQUE: COMPARISON: CT abdomen and pelvis dated 04/04/2016. No prior abdominal MRIs available for comparison. FINDINGS: There has been a previous cholecystectomy. There is extrahepatic biliary dilatation and minimal intrahepatic biliary dilatation that is approximately stable as compared to the previous CT. The common bile duct measures up to 1.5 cm in diameter. No discrete filling defect or focal stricture can be identified in the common bile duct, however. There is normal-appearing tapering of the duct as it approaches the ampulla. The liver, spleen, and adrenal glands are unremarkable. The pancreas appears grossly unremarkable. No well-defined pancreatic mass is appreciated. There is a prominent hiatal hernia that is stable as compared to the previous CT. There are a few colonic diverticula. The remainder of the visualized abdominal segments of the GI tract are grossly unremarkable. There are several small simple appearing renal cysts bilaterally that appear stable. The kidneys are grossly unremarkable, otherwise. IMPRESSION: 1.Stable dilation of the common bile duct with no well-defined obstructing lesion. This may simply be due to postcholecystectomy status and age. 2.Other incidental/nonacute findings detailed above. Electronically signed by Sanket Martin 11/27/2016 9:18 AM
[2016-11-27] MEDS: ATIVAN PO SCH ×2 (10:39→21:08)
--- NOTE | 2016-11-27 17:01 | PROGRESS NOTE ---
DATE: 11/27/2016 SUBJECTIVE: The patient is resting comfortably in bed. She complains of nausea and some abdominal discomfort. She had an MRCP done this morning. OBJECTIVE: Vital Signs: Temperature 98 degrees, blood pressure 145/61, heart rate 67, respirations 18, O2 saturations 100% on room air. General: This is an elderly female, lying in bed, in no acute distress. Heart: S1, S2 normal. Regular rate and rhythm. Lungs: Clear to auscultation bilaterally. No wheezes, no rales. No rhonchi. Abdomen: Positive bowel sounds. Soft, nontender, nondistended. Extremities: No edema. No cyanosis. No calf tenderness. Neurologic: The patient is very hard of hearing, but alert and oriented x 4. LAB: Reviewed. ASSESSMENT AND PLAN: 1. Abdominal pain with nausea. The MRCP done today is unremarkable. The patient has had an extensive workup as outpatient for her abdominal complaints. Will await further recommendations from the alarm signal operator. 2. Deconditioning. We will consult physical therapy. The patient is interested in rehab placement. 3. Gastroparesis. The patient is currently on IV erythromycin. We will continue that for now. 4. Anxiety disorder. Continue on Ativan. 5. Deep vein thrombosis prophylaxis. Will start the patient on sequential compression devices. cc: Jenelle Hedrick MD
--- NOTE | 2016-11-27 20:44 | CONSULTATION ---
DATE OF CONSULTATION: 11/27/2016 PRIMARY CARE PHYSICIAN: Sharon Patel M.D. PRIMARY HOSPITALIST: Jenelle Hedrick M.D. INDICATION FOR CONSULTATION: 1. Intractable nausea with vomiting. 2. Refractory gastroesophageal reflux disease. 3. Significant gastroparesis. 4. Dysphagia. HISTORY OF PRESENT ILLNESS: The patient is an 85-year-old white female who has been followed in our clinic. She has significant gastroparesis that was diagnosed in 2016. Over the last year, she initially was treated with Reglan. She had significant clinical response and has felt "the best ever". Unfortunately, she developed neurologic side effects and early neurologic tremors resulting in discontinuation of the therapy. We placed her on erythromycin which also worked initially. However, her co-pay was over 600 dollars a month. Recently, she resumed erythromycin as she was able to find a pharmacist that was able to provide it at a much more economical cowart. However, she has had diarrhea, right upper quadrant pain, nausea with vomiting and constipation. She was scheduled to undergo an outpatient MRCP today. However, she was admitted over the weekend. On MRCP, she was found to have a chronically dilated common bile duct at 1.5 cm. There were no masses and no other findings. She reports worsening dysphagia, heartburn, indigestion, and nausea. She has not had vomiting in the last 24 hours. She notes significant constipation and right lower quadrant pain. She also reports urinary frequency with some mild dysuria despite a negative urinalysis in the emergency room. We are asked to participate in her care. Of note, since she has been placed on IV erythromycin, she notes a significant reduction in her nausea and vomiting. PAST MEDICAL HISTORY: 1. Gastroparesis. 2. Hypertension. 3. TIAs. 4. Diverticulosis. 5. Anxiety. 6. Colon polyps. 7. Gastritis. 8. GERD. 9. Schatzki's ring, status post multiple dilations. 10. Fundic gland polyps. 11. Mild duodenitis. 12. Iron-deficiency anemia. 13. Degenerative joint disease. 14. Hemorrhoids. 15. Hyperlipidemia. 16. Irritable bowel syndrome. 17. Irregular heart rate. 18. Chronic renal disease. 19. Recurrent urinary tract infections. 20. Vitamin B12 deficiency. 21. Presbyesophagus. 22. Chronically dilated common bile duct. 23. 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 PAST SURGICAL HISTORY: 1. Appendectomy. 2. Lumpectomy. 3. Cholecystectomy. MEDICATION ALLERGIES: 1. Crestor. 2. Evista. 3. Lescol. 4. Niaspan. 5. Penicillin. 6. Zetia. 7. Zocor. 8. Reglan. HOME MEDICATIONS: 1. Prednisolone 1% ophthalmic solution. 2. MiraLAX. 3. Zofran. 4. Prilosec. 5. Ativan. 6. Hydrochlorothiazide. 7. Erythromycin 250 mg p.o. t.i.d. (recently resumed). 8. Tums. 9. Aspirin 81 mg. FAMILY HISTORY: Positive for colon cancers, GERD and irritable bowel syndrome. SOCIAL HISTORY: Negative for alcohol, tobacco or recreational drug use. REVIEW OF SYSTEMS: Remarkable for information as noted in history of present illness. In addition, she reports her nausea is slightly improved since admission. She continues to have right flank pain over her kidney "right lower quadrant pain and right middle quadrant pain". She also reports an increase in constipation since admission and urinary frequency. She notes she has also begun to experience dysphagia which is new since her last dilation. PHYSICAL EXAMINATION: Vital signs: On exam, her blood pressure is 138/75, pulse 87, respiration 20, temperature of 98.7 degrees. HEENT: Negative for jaundice. Her conjunctivae are normal. Her oropharyngeal mucosal membranes is significantly dry. Chest: Clear to auscultation with normal expiratory effort. Cardiovascular: Reveals regular rate and rhythm with no murmurs, gallops, or rubs. Abdominal: Reveals normoactive bowel sounds. The abdomen is soft with mild right upper quadrant to right flank pain. There is no rebound or guarding. Extremities: Bilaterally are negative for cyanosis, clubbing, or edema. Neurologic: She is alert and oriented x3 with appropriate mood, affect, and memory. OBJECTIVE DATA: Reveals a hemoglobin of 14 with hematocrit of 41.9 and a white count 7.50. She has 310,000 platelets. Sodium is 136, potassium 3.8, chloride 98, CO2 27, BUN 10, creatinine 1 with a glucose of 70 and calcium of 9.1. On 11/26/2016, urinalysis was negative with a pH of 6.5, specific gravity 1.006 and less than 10 white blood cells and red blood cells. Culture was not performed. IMPRESSION: 1. Gastroparesis. 2. Gastroesophageal reflux disease. 3. Nausea. 4. Right flank pain. 5. Constipation. 6. Urinary frequency. 7. Multiple gastrointestinal concerns as noted above. 8. History of colon polyps. RECOMMENDATION: 1. With regard to her gastroparesis, I recommend continuing the IV erythromycin which has improved her nausea considerably. 2. She reports an interval increase in her dysphagia. She underwent dilation of a significant Schatzki's ring in 09/2016. Therefore, I would repeat a modified barium swallow to help us to identify if she is having restriction secondary to Schatzki's ring, esophageal spasm or presbyesophagus. 3. If her swallow study is negative, one can consider baclofen 2.5 mg p.o. at bedtime for treatment of her reflux disease. 4. She reports that she is spitting up or coughing up secretions into the back of her throat. We will need to again discuss the gastroparesis diet pending evaluation as planned above. 5. The cause of her urinary frequency is unclear. I will monitor for the time being. 6. She reports significant constipation. I will prescribed Dulcolax suppository at bedtime while she is an inpatient. 7. Once we are able to assess her esophagus, it would be reasonable to advance her diet to a gastrointestinal soft pending the results of her modified barium swallow. 8. Continue Protonix 40 mg IV q.12 hours as you are doing. 9. Continue MiraLAX 17 g p.o. daily as you are doing. 10. Continue Phenergan q.4 hours as needed. 11. Additional recommendations to follow based on her planned evaluation. cc: MD Sharon Alvarez MD MTDD
[2016-11-27] MEDS: DULCOLAX PR SCH (21:08)
[2016-11-27] MEDS: ASPIRIN PO SCH (21:09)
[2016-11-27] MEDS: MIRALAX PO SCH (21:11)
--- NOTE | 2016-11-28 05:30 | EKG Report ---
Test Performed on : 11/26/2016 5:14:25 PM Test Reason : chest pain Blood Pressure : / mmHG Vent. Rate : 069 BPM Atrial Rate : 069 BPM P-R Int : 146 ms QRS Dur : 076 ms QT Int : 410 ms P-R-T Axes : 067 023 069 degrees QTc Int : 439 ms Sinus rhythm. with premature atrial complexes. Otherwise normal ECG When compared with ECG of 11-OCT-2016 17:17, No significant change was found Unconfirmed Result
[2016-11-28 06:35] LABS: HEMATOCRIT 38.3 % (37.0-47.0); HEMOGLOBIN 12.7 g/dL (12.0-16.0); MCH 32.4 PG (27-31); MCHC 33.2 g/dL (33-37); MCV 97.7 FL (81-99); MPV 9.4 FL (7.4-10.4); RBC 3.92 XMIL (4.2-5.4)
[2016-11-28 06:43] LABS: AGAP 11; ALBUMIN 3.5 g/dL (3.5-5.0); ALKALINE PHOSPHATASE 59 U/L (32-104); BUN 9 mg/dL (8-22); CALCIUM 8.6 mg/dL (8.8-10.2); CHLORIDE 103 mmol/L (98-107); COSMO 273; GOT 12 U/L (10-30); GPT 7 U/L (10-36); SODIUM 138 mmol/L (136-145); TCO2 24 mmol/L (25-35); TOTAL BILIRUBIN 0.31 mg/dL (0.20-1.00); TOTAL PROTEIN 5.9 g/dL (6.3-8.3)
[2016-11-28] MEDS: ATIVAN PO SCH ×2 (09:33→21:26)
[2016-11-28] MEDS: SODIUM CHLORIDE 0.9% INJ SCH (09:33)
[2016-11-28] MEDS: PROTONIX IV SCH ×2 (09:33→21:29)
[2016-11-28] MEDS: ERYTHROMYCIN 500 MG in NS 250 ML IV SCH ×2 (09:33→21:33)
--- NOTE | 2016-11-28 10:56 | Diag Imaging Result Doc PS360 ---
EXAM: BA SWALLOW W/VIDEO SPEECH THER HISTORY: dysphagia, gastroparesis, refract GERD TECHNIQUE: Dose was 87 mgray. Fluoroscopy time is 28 seconds. COMPARISON: None. FINDINGS:No aspiration occurred during swallowing of thin or thick barium. Minimal tertiary contractions in the distal esophagus. There was a small hiatal hernia. There are also small cervical bone spurs in the lower cervical spine. IMPRESSION: There is a small hiatal hernia in addition to mild tertiary contractions distally Electronically signed by Greg Currie 11/28/2016 10:53 AM
[2016-11-28] MEDS ORDERED: DULCOLAX PR ONE (13:32)
--- NOTE | 2016-11-28 14:13 | PROGRESS NOTE ---
DATE: 11/28/2016 SUBJECTIVE: The patient continues to have dysphagia. On modified barium swallow today, she had food that lodged at the lower esophageal sphincter consistent with achalasia. This recurred on repeat food challenges. She notes abdominal bloating and weakness. She also complains of constipation. She received a Dulcolax suppository last night but only had small results. She would like to resume her home dose of MiraLAX which is 17 g 1 p.o. b.i.d. In addition, she would like an additional suppository. She continues to describe reflux of bile, bitter tasting secretions from her stomach. OBJECTIVE: On exam, her blood pressure is 154/57, pulse 64, respirations 16, temperature of 98.1 degrees. Her abdomen is soft, with normoactive bowel sounds. It is mildly distended compared to her baseline. There is no rebound or guarding. OBJECTIVE DATA: Revealed a hemoglobin of 12.7 with hematocrit of 38.3, and a white count of 8.04. She has 282,000 platelets. Sodium 138, potassium 4.0, chloride 103, CO2 24, BUN 9, creatinine 0.8 with a glucose of 82. Calcium is 8.6, total bilirubin 0.31, AST 12, ALT 7, alkaline phosphatase 59, total protein 5.9, albumin 3.5. IMPRESSION: 1. Dysphagia. 2. Gastroparesis. 3. Gastroesophageal reflux disease. 4. Constipation. RECOMMENDATION: 1. For the dysphagia, will plan to perform an EGD with dilation in the morning. This will allow the patient to resume her usual diet. 2. For the refractory reflux/gastroparesis, I will begin baclofen 5 mg p.o. b.i.d. We will titrate up to the dose of 10 mg 3 times a day depending on her clinical response and reoccurrence of symptoms. If this fails, she will need a referral to [facility] for evaluation in the gastric pacemaker clinic. 3. For the constipation, I have resumed her home MiraLAX 17 g p.o. b.i.d. I will also administer an additional Dulcolax suppository today. 4. The patient notes weakness. I have asked the nurse to ambulate the patient with assist 2-3 times per day. I will also order physical therapy at the bedside. cc: MD Jenelle Alvarez MD Bhavna Gowda, MD [facility]
[2016-11-28] MEDS: LIORESAL PO SCH ×3 (14:22→21:28)
[2016-11-28] MEDS: MIRALAX PO SCH ×2 (14:22→21:30)
[2016-11-28] MEDS: ASPIRIN PO SCH (21:26)
[2016-11-28] MEDS: DULCOLAX PR SCH (21:29)
--- NOTE | 2016-11-29 04:58 | PROGRESS NOTE ---
DATE: 11/28/2016 SUBJECTIVE: The patient states that she feels a lot better today. The rash is slowly resolving. The patient is resting comfortably in bed. She reports that she is still feeling nauseous and uneasy in her abdomen. She also complains of difficulty swallowing. OBJECTIVE: Vital Signs: Temperature 98 degrees, blood pressure 142/59, heart rate 65, respirations 15, O2 saturations 99% on room air. Intake 1 L, output 1.5 L. General: This is an elderly female, lying in bed, in no acute distress. Heart: S1, S2 normal. Regular rate and rhythm. Lungs: Clear to auscultation bilaterally. No wheezes, no rales. No rhonchi. Abdomen: Positive bowel sounds. Soft, obese, nontender, nondistended. Extremities: No edema. No cyanosis. No calf tenderness. The rash appears to be resolving. Neurologic: The patient is alert oriented x 4. The patient is alert and oriented x 3. Labs reviewed. ASSESSMENT AND PLAN: 1. Dysphagia. The patient is scheduled to undergo an EGD with dilation tomorrow. 2. Gastroparesis. The patient has been started on baclofen by . Will monitor for improvement. 3. Anxiety disorder. Continue on Ativan. 4. Constipation. The patient is currently on scheduled laxative therapy and she has had a bowel movement today. 5. Deconditioning. Continue with physical therapy. 6. Constipation. Improved. Continue with scheduled laxative therapy. 7. Anxiety disorder. Continue on Ativan. 8. Disposition. The patient states that she feels very weak and may be interested in rehab. Plate Printer is aware. cc: Jenelle Hedrick MD [facility]
[2016-11-29 06:05] LABS: HEMATOCRIT 36.9 % (37.0-47.0); HEMOGLOBIN 12.3 g/dL (12.0-16.0); MCH 32.7 PG (27-31); MCHC 33.3 g/dL (33-37); MCV 98.1 FL (81-99); MPV 9.4 FL (7.4-10.4); RBC 3.76 XMIL (4.2-5.4)
[2016-11-29 06:23] LABS: CALCIUM 9.1 mg/dL (8.8-10.2); POTASSIUM 3.9 mmol/L (3.5-5.1)
[2016-11-29] MEDS ORDERED: VERSED ONE (08:18)
[2016-11-29] MEDS ORDERED: XYLOCAINE-MPF 2% ONE (08:18)
[2016-11-29] MEDS ORDERED: DIPRIVAN 1% ONE (08:19)
[2016-11-29] MEDS: PROTONIX IV SCH (09:14)
[2016-11-29] MEDS: LIORESAL PO SCH ×2 (09:50→22:03)
[2016-11-29] MEDS: ATIVAN PO SCH ×2 (09:51→22:34)
[2016-11-29] MEDS: MIRALAX PO SCH ×2 (09:51→22:03)
[2016-11-29] MEDS: ERYTHROMYCIN 500 MG in NS 250 ML IV SCH (10:36)
[2016-11-29] MEDS: ACIPHEX PO SCH ×2 (10:38→23:14)
[2016-11-29] MEDS: CARAFATE PO SCH ×3 (12:01→22:03)
--- NOTE | 2016-11-29 13:14 | PROGRESS NOTE ---
DATE: 11/29/2016 SUBJECTIVE: The patient just returned from EGD with esophageal dilation. The patient has no complaints at this time. OBJECTIVE: Vital Signs: Temperature 97.4 degrees, blood pressure 126/53, heart rate 61, respirations 16, O2 saturation is 97% on room air. General: This is an elderly female, lying in bed, in no acute distress. Head: Normocephalic, atraumatic. Heart: S1, S2. Normal. Regular rate and rhythm. Lungs: Equal air entry bilaterally. No crackles. No rales. Abdomen: Positive bowel sounds. Soft, nontender, nondistended. Extremities: No edema. No cyanosis. No calf tenderness. Neurologic: The patient is alert and oriented x3. LABS: Reviewed. ASSESSMENT AND PLAN: 1. Dysphagia status post esophageal dilation. We will continue to monitor the patient closely. 2. Gastroparesis. The patient is currently on Baclofen and erythromycin. 3. Hypertension. Controlled. 4. Deconditioning. Continue with physical therapy. 5. Anxiety disorder. Continue on Ativan. 6. Disposition. university services program associate is assisting with rehab placement. cc: Jenelle Hedrick MD
[2016-11-29] MEDS ORDERED: ZOFRAN PO PRN (20:51)
[2016-11-29] MEDS: ASPIRIN PO SCH (22:04)
[2016-11-29] MEDS: DULCOLAX PR SCH (22:04)
[2016-11-29] MEDS: ERYTHROCIN PO SCH (23:20)
[2016-11-30 07:51] VITALS: BP 159/56
[2016-11-30] MEDS: MIRALAX PO SCH (08:23)
[2016-11-30] MEDS: LIORESAL PO SCH (08:23)
[2016-11-30] MEDS: CARAFATE PO SCH ×2 (08:23→12:11)
[2016-11-30] MEDS: ERYTHROCIN PO SCH ×2 (08:24→12:11)
[2016-11-30] MEDS: ACIPHEX PO SCH (08:24)
[2016-11-30] MEDS: ATIVAN PO SCH (08:24)
--- NOTE | 2016-11-30 11:18 | DISCHARGE SUMMARY ---
ADMISSION DATE: 11/27/2016 DISCHARGE DATE: 11/30/2016 PRIMARY CARE PHYSICIAN: Dr. Patel. FINAL DISCHARGE DIAGNOSES: 1. Dysphagia, status post esophageal dilation. 2. Gastroparesis. 3. Gastroesophageal reflux disease. 4. Constipation. 5. Anxiety disorder. 6. Deconditioning. CONSULTATIONS REQUESTED DURING THIS HOSPITAL STAY: GI consultation with Dr. Jenkins. IMAGING PERFORMED DURING THIS HOSPITAL STAY: 1. Abdominal x-ray performed on 11/26/2016 that revealed a nonspecific abdomen. 2. MRCP performed on 11/27/2016 that revealed a stable dilation of the common bile duct with no well defined obstructing lesion. PROCEDURES PERFORMED DURING THIS HOSPITAL STAY: EGD with esophageal dilation. HOSPITAL COURSE: Ms. Peterson is an 85-year-old female with a history of longstanding gastroparesis who initially presented to the ER with a chief complaint of nausea, vomiting, and abdominal pain. The patient was admitted to the hospitalist service. On admission, an abdominal x-ray was done that revealed a nonspecific abdomen. The patient was also started on IV fluids. An MRCP was done that revealed a stable dilation of the common bile duct but no evidence of an obstructing lesion. GI was consulted for further assistance. The patient also underwent a modified barium swallow due to her complaints of dysphagia. The barium swallow revealed a small hiatal hernia with mild tertiary contractions distally. In light of these findings, it was decided to proceed with an EGD with dilation. The patient underwent the procedure on 11/29/2016. Following the procedure, the patient was placed on a GI soft diet which she was able to tolerate without any difficulty. At this time, the patient denies having any nausea, vomiting, or difficulty swallowing. The patient is very deconditioned and is interested in going to rehab as an inpatient. The patient has been accepted for transfer to [facility]. The patient is currently stable for discharge. DISCHARGE MEDICATIONS: 1. Erythromycin 250 mg p.o. 4 times a day. 2. MiraLAX 17 g p.o. twice a day. 3. AcipHex 20 mg p.o. twice a day. 4. Carafate 1 g p.o. 4 times a day. 5. Baclofen 5 mg p.o. twice a day. 6. Zofran 4 mg p.o. every 6 hours p.r.n. for nausea. 7. Ativan 0.5 mg p.o. twice a day. 8. Prednisolone 1% ophthalmic solution, apply as directed. 9. Aspirin 81 mg p.o. at bedtime. 10. Calcium carbonate 500 mg p.o. 3 times a day p.r.n. for indigestion. DISCHARGE DIET: GI soft diet. ACTIVITY: As tolerated. FOLLOWUP INSTRUCTIONS: The patient will need to follow up with Dr. Patel in 2 weeks. The patient will need to follow up with Dr. Jenkins in 2-3 weeks. cc: MD Sharon Shoemaker MD
--- NOTE | 2016-11-30 11:42 | Diag Imaging Result Doc PS360 ---
EXAM: CHEST-PORTABLE HISTORY: rehab placement TECHNIQUE: AP portable at 1133 COMMENT: There is an apparent hiatal hernia. There is some fibrosis over the left base. Compared to the previous study of 11/26/2016 there is been no significant change. IMPRESSION: Stable chest. Electronically signed by Huan Aranda 11/30/2016 11:40 AM
--- NOTE | 2016-12-01 10:11 | OPERATIVE NOTE ---
PROCEDURE DATE: 11/29/2016 REFERRING PHYSICIAN: Sharon Patel M.D. INDICATIONS FOR PROCEDURE: 1. Dysphagia. 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 3. Chronic nausea. 4. Known gastroparesis. 5. Persistent epigastric and right upper quadrant pain. PROCEDURES PERFORMED: 1. Esophagogastroduodenoscopy with dilation. 2. Esophagogastroduodenoscopy with polypectomy. PERFORMING PHYSICIAN: Adrienne Jenkins M.D. ASSISTANTS: 1. Bettie Renee RN. 2. Sharon Krause RN. 3. Shanel Rg CRNA. 4. Adal Roach M.D. (anesthesia). CONSENT: Informed consent was obtained from the patient prior to the procedure. The risks, benefits, and alternatives were discussed with the patient and her daughters. MEDICATION: The patient received monitored anesthesia care. COMPLICATIONS: There were no complications. ESTIMATED BLOOD LOSS: Less than 1 mL. SPECIMENS REMOVED: Fundic gland polyp. FINDINGS: After sedation was achieved, the upper endoscope was inserted to the 2nd portion of the duodenum. The hypopharynx appeared endoscopically normal. There was moderate increased resistance at the upper esophageal sphincter. The tubular esophagus appeared normal. There was a moderately restricted Schatzki ring at the GE junction. The GE junction was measured at 35 cm from the incisors. There was a large hiatal hernia that spanned from 35-45 cm. There was no evidence of Cisneros esophagus. There was a fundic polyp in the hiatal hernia sac that was 5-10 mm in size that was removed by snare cautery. In the gastric lumen, there was gastritis with scattered erosions. There was a polyp that was less than 5 mm in size that was ablated using the coagulation wire. On retroflexed view, there was a hiatal hernia, gastritis, and the fundic gland polyp. On forward view, there was a 5-7 mm antral ulcer with a whitish base and superficial erosions. The pylorus appeared normal. The duodenum appeared normal. The scope was retracted into the gastric lumen. A guidewire was placed through the scope and 51 and 54-Maltese Savary dilators were used to dilate the esophagus. On 2nd look endoscopy, there was decreased resistance at the upper and lower esophageal sphincter. There was a small amount of heme but no evidence of tear or rupture. After the exam was complete, the polyp was removed from the hernia sac at that time. The 2nd polyp was ablated. The lumen was decompressed and the scope was retracted without incident. IMPRESSION: 1. Cricopharyngeal achalasia. 2. Lower esophageal sphincter, Schatzki ring. 3. Large hiatal hernia. 4. Polyp in the hernia sac. 5. Fundic gland polyp in the fundus. 6. Erosive gastritis. 7. Antral ulcer. 8. Normal duodenum. 9. Successful dilation of the upper and lower esophageal sphincter. 10. Dilation of the Schatzki ring. 11. Successful polypectomy of the fundic gland polyp. 12. Successful ablation of the smaller fundic gland polyp. RECOMMENDATIONS: 1. Await biopsy results. 2. Begin AcipHex 20 mg p.o. b.i.d. for 6 weeks and then reduce to once daily. I suspect the omeprazole is no longer working as she has developed an ulcer on therapeutic doses. 3. Begin Carafate 1 g 4 times a day for 8 weeks and then stop. We will plan to crush the pill and dissolve in water or mix in applesauce. 4. Begin a GI soft diet. 5. Continue erythromycin for treatment of gastroparesis. 6. We will have the patient return to clinic in 4 weeks to assess interval progress. cc: MD Sharon Alvarez MD MTDD
== END 2016-11-30 14:26 ==
LOC: ED 12:54 → 4N 12:54 → SUATTDRO 18:38
PROVIDERS: ATTEND Internal Medicine